=== PATIENT | female | born 1940 | race Caucasian/White ===

== ENCOUNTER 2016-10-23 21:35 | Emergency (ER) | payer MEDICARE, MEDICAID ==
[2016-10-23 22:54] VITALS: BP 134/76
--- NOTE | 2016-10-24 00:04 | UC ---
Abdominal Pain Female HPI - HPI Summary HPI Summary: 76 [address] [facility] accompanied by daughter c/o LLQ abd pain progressively worse (last few days, but exact timing unclear). No fever / chills. + blood clots in stool this afternoon x 2, first at 4pm. No urine difficulties. Hx diverticulosis on CT a/p in December 2015. No cp / sob. + recent anxiety 2/2 apartment renovation. No rash. - History of Current Complaint Chief Complaint: UCGI Stated Complaint: BLOOD IN STOOL Time Seen by Provider: 10/23/16 22:14 Hx Obtained From: Patient, Family/Progress Worker ?: No Pain Intensity: 0 Pain Scale Used: 0-10 Numeric Allergies/Adverse Reactions: Allergies Allergy/AdvReac Type Severity Reaction Status Date / Time No Known Allergies Allergy Verified 10/23/16 23:28 Home Medications: Home Medications ALPRAZolam TAB* [Xanax TAB*] PO PRN 10/23/16 [History] Diuretic* 10/23/16 [History] PMH/Surg Hx/FS Hx/Imm Hx Previously Healthy: No - see hpi Endocrine History Of: Denies: Diabetes, Thyroid Disease Cardiovascular History Of: Reports: Hypertension Denies: Cardiac Disorders, Pacemaker/ICD Respiratory History Of: Denies: COPD, Asthma GI/ History Of: Denies: Ulcer, Renal Disease Cancer History Of: Denies: Breast Cancer - Surgical History Surgical History: Yes Surgery Procedure, Year, and Place: LUNG SURG - AGE 17 - FROM A HEMORRHAGE. HYSTERECTOMY - Social History Alcohol Use: None Substance Use Type: None Smoking Status (MU): Never Smoked Tobacco Review of Systems Constitutional: Negative, Fatigue Skin: Negative Eyes: Negative ENT: Negative Respiratory: Negative Cardiovascular: Negative Gastrointestinal: Abdominal Pain Genitourinary: Negative Motor: Negative Neurovascular: Negative Musculoskeletal: Negative Neurological: Negative Psychological: Anxious All Other Systems Reviewed And Are Negative: Yes Physical Exam Triage Information Reviewed: Yes Appearance: Well-Nourished - sitting up, conversing ok. Nontoxic appearance. NAD. Vital Signs: Initial Vital Signs Temp 98.0 F 10/23/16 21:59 Pulse 88 10/23/16 21:59 Resp 18 10/23/16 21:59 BP 153/71 10/23/16 21:59 Pulse Ox 95 10/23/16 21:59 Vital Signs Reviewed: Yes Eye Exam: Normal ENT Exam: Normal Neck exam: Normal Neck: Positive: Nontender Respiratory Exam: Other Respiratory: Positive: Chest non-tender, Lungs clear, Wheezing - mild exp wheeze (pt states not unusual) Cardiovascular Exam: Normal Cardiovascular: Positive: RRR, No Murmur, Pulses Normal Abdominal Exam: Other - tender LLQ. No cvat appreciated. Abdomen Description: Positive: No Organomegaly, Soft Bowel Sounds: Positive: Present Neurological Exam: Normal - grossly normal, nonfocal Psychological Exam: Normal - normal except anxious understandably Skin Exam: Normal Abd Pain Female Course/Dx - Course Course Of Treatment: D/w pt and daughter. Recommend further eval / management in the ED. They express understanding and agreement. EMS offered but they politely but firmly decline. EMS AMA signed. I spoke with Dr. Jones at the ED 10:40pm approx. - Differential Dx/Diagnosis Provider Diagnoses: Acute abd pain. Hematochezia Discharge - Discharge Plan Condition: Stable Disposition: AGAINST MEDICAL ADVICE Referrals: Gómez Warren MD [Primary Care Provider] -
== END 2016-10-23 23:02 | disposition left against medical advice (07) ==
LOC: UCEAST 21:35
DX: R10.32 Left lower quadrant pain (principal); K92.1 Melena
CPT/HCPCS: 99212; G0463

== ENCOUNTER 2016-10-23 23:25 | Emergency (ER) | payer MEDICARE, MEDICAID ==
[2016-10-24 00:48] LABS: Hematocrit 45 % (35-47); Hemoglobin 14.8 g/dl (12.0-16.0); Mean Corpuscular HGB Conc 33 g/dl (31-36); Mean Corpuscular Hemoglobin 30 pg (27-31); Mean Corpuscular Volume 91 fL (80-97); Mean Platelet Volume 8 um3 (7.4-10.4); Red Blood Count 4.95 10^6/ul (4.0-5.4); Red Cell Distribution Width 14 % (10.5-15); White Blood Count 13.5 10^3/ul (3.5-10.8)
[2016-10-24 00:58] LABS: Albumin 4.2 g/dL (3.2-5.2); BUN/Creatinine Ratio 32.7 (8-20); Calcium 9.8 mg/dL (8.6-10.3); EGFR African American 71.3 (>60); EGFR Non-African American 55.5 (>60); Globulin 3.5 g/dL (2-4); Potassium 3.2 mmol/L (3.5-5.0); Total Bilirubin 0.5 mg/dL (0.2-1.0); Total Protein 7.7 g/dL (6.4-8.9)
[2016-10-24] MEDS ORDERED: NS 0.9% 1000 ML* 1,000 ML IV SCH (03:00)
[2016-10-24] MEDS ORDERED: Iodixanol 320 (CONTRAST) 100 ML SDV IV ONE (04:53)
[2016-10-24] MEDS ORDERED: Pantoprazole TAB (NF) 40 MG TAB PO ONE (05:51)
[2016-10-24 06:42] VITALS: BP 188/72
--- NOTE | 2016-10-24 06:59 | ED ---
Tali Grigsby Rebecca, scribed for [employer] Boseuel on 10/24/16 at 0016 . Abdominal Pain/Female - HPI Summary HPI Summary: Pt is a 76 y/o F who was referred to ED from [facility] who presents to ED c/o blood -tinged diarrhea. Diarrhea began 2 days ago and has been constant since onset. Reports that she had two episodes today, both of which had a scant amount of red blood. Additionally notes sharp LLQ abd pain that has resolved, alleviated by BM. Denies vomiting, fever. Is not on any blood thinners. No PMHx hemorrhoids. - History of Current Complaint Chief Complaint: EDNauseaVomitDiarrh Stated Complaint: DIARRHEA/BLOODY STOOL Time Seen by Provider: 10/23/16 23:59 Hx Obtained From: Patient Onset/Duration: Resolved Severity Currently: None Pain Intensity: 0 Pain Scale Used: 0-10 Numeric Location: Discrete At: LLQ Radiates: No Character: Sharp Aggravating Factor(s): Nothing Alleviating Factor(s): Bowel Movement Associated Signs and Symptoms: Positive: Blood in Stool - bright red, Diarrhea. Negative: Fever, Vomiting Allergies/Adverse Reactions: Allergies Allergy/AdvReac Type Severity Reaction Status Date / Time Lactose Intolerance (GI) Allergy Stomach Verified 10/24/16 00:13 Cramps PMH/Surg Hx/FS Hx/Imm Hx Endocrine/Hematology History: Denies: Hx Diabetes, Hx Thyroid Disease Cardiovascular History: Reports: Hx Hypertension Denies: Hx Pacemaker/ICD Respiratory History: Denies: Hx Asthma, Hx Chronic Obstructive Pulmonary Disease (COPD) GI History: Denies: Hx Ulcer History: Denies: Hx Renal Disease Sensory History: Denies: Hx Hearing Aid Psychiatric History: Denies: Hx Eating Disorder, Hx Panic Disorder, Hx of Violent Episodes Against Others - Cancer History Hx Chemotherapy: No Hx Radiation Therapy: No - Surgical History Surgery Procedure, Year, and Place: LUNG SURG - AGE 17 - FROM A HEMORRHAGE. HYSTERECTOMY - Immunization History Date of Tetanus Vaccine: Unk Date of Influenza Vaccine: Fall 2013 Infectious Disease History: Denies: Hx Clostridium Difficile, Hx Hepatitis, Hx Human Immunodeficiency Virus (HIV), Hx of Known/Suspected MRSA, Hx Shingles, Hx Tuberculosis, Hx Known/ Suspected VRE, Hx Known/Suspected VRSA, History Other Infectious Disease, Traveled Outside the [place] in Last 30 Days - Family History Known Family History: Positive: Hypertension - Social History Alcohol Use: None Substance Use Type: Reports: None Smoking Status (MU): Never Smoked Tobacco Review of Systems Negative: Fever Positive: Abdominal Pain - LLQ, resolved, Diarrhea - blood-tinged diarrhea. Negative: Vomiting All Other Systems Reviewed And Are Negative: Yes Physical Exam - Summary Physical Exam Summary: Rectal Exam: No hemorrhoids. No blood. Triage Information Reviewed: Yes Vital Signs On Initial Exam: Initial Vitals Temp Pulse Resp BP Pulse Ox 98.4 F 84 18 154/64 94 10/23/16 23:29 10/23/16 23:29 10/23/16 23:29 10/23/16 23:29 10/23/16 23:29 Vital Signs Reviewed: Yes Appearance: Positive: Well-Appearing, No Pain Distress Skin: Positive: Warm, Skin Color Reflects Adequate Perfusion, Dry Eyes: Positive: EOMI, ILDA Respiratory/Lung Sounds: Positive: Clear to Auscultation, Breath Sounds Present Cardiovascular: Positive: RRR, Pulses are Symmetrical in both Upper and Lower Extremities Abdomen Description: Positive: Nontender, Soft Bowel Sounds: Positive: Present Musculoskeletal: Positive: Normal, Strength/ROM Intact Neurological: Positive: Normal, Sensory/Motor Intact, Alert, Oriented to Person Place, Time Diagnostics - Vital Signs Vital Signs Temp Pulse Resp BP Pulse Ox 10/23/16 23:29 98.4 F 84 18 154/64 94 - Laboratory Result Diagrams: 10/24/16 00:25 10/24/16 00:25 Lab Statement: Any lab studies that have been ordered have been reviewed, and results considered in the medical decision making process. - CT CT Abd/Pel CT Interpretation Completed By: Radiologist - GI contrast and lack of a multiphase scan precludes evaluation of blood in the GI tract. There is no bowel obstruction, free air or free fluid. There is advanced sigmoid diverticulosis but no appreciable perisigmoidal inflammation. Negative for colitis. Duodenal diverticulum noted. Bilateral renal cysts. No acute renal or ureteral abnormalities. Urinary bladder partially distended. Normal liver. Normal gallbladder. Normal spleen. Normal pancreas. Normal adrenal glands. Chronic changes of the right lung base again noted. Emphysematous changes of the lungs noted. Abdominal Pain Fem Course/Dx - Course Course Of Treatment: Came with rectal bleeding. Labs and CT done. Hemoglobin is normal. CT is negative and pt had a BM but there was no active bleeding and does not want to be admitted to the hospital. Will D/C pt to follow up with PCP and retail buyer as an outpatient. Give Protonix for the pt until she sees retail buyer. - Diagnoses Provider Diagnoses: Rectal bleeding Discharge - Discharge Plan Condition: Stable Disposition: HOME Prescriptions: Pantoprazole TAB (NF) [Protonix TAB (NF)] 40 mg PO DAILY #30 tab Patient Education Materials: Rectal Bleeding (ED) Referrals: Gómez Warren MD [Primary Care Provider] - 3 Days Anderson Thomas MD [Medical Doctor] - 3 Days The documentation as recorded by the Tali moreno Rebecca accurately reflects the service I personally performed and the decisions made by Lidya allen Emmanuel.
[2016-10-24] MEDS ORDERED: Omeprazole CAP* 20 MG PO ONE (07:00)
--- NOTE | 2016-10-24 15:34 | RAD ---
CLINICAL HISTORY: Diarrhea and hematochezia x2 days. Relevant surgical history includes hysterectomy and "lung surgery - age 17 - from a hemorrhage"). COMPARISON: Most recent comparison CT examination dated March 07, 2012 TECHNIQUE: Contrast enhanced CT examination of the abdomen and pelvis from the lung bases through the initial tuberosities. The patient received 96 mL Visipaque 320 intravenously prior to imaging.The patient received oral contrast as well prior to imaging. FINDINGS: VISUALIZED LUNG BASES: Similar the previous CT examination there is partially calcified density at the right lung base, intralobular thickening with varicoid bronchiectatic dilatation of the airways dependently. In addition there is disruption of the lateral eighth and ninth ribs. The left lung base is normal in appearance. There are no pleural effusions. ABDOMEN AND PELVIS: The liver, spleen, pancreas and adrenal glands are grossly normal in appearance. The gallbladder is normal. The kidneys are normal in appearance without focal mass, calcification or signs of hydronephrosis. Stable low-density renal cysts are identified in the bilateral kidneys. Smaller subcentimeter hypodensities are identified that cannot be characterized further on this CT examination but appear to be stable when compared to the previous CT. The oral contrast has progressed as far as the splenic flexure of the colon again noted is a diverticulum in the third portion of the duodenum. The small bowel is not pathologically dilated. The cecal appendix is not discretely visualized, but there are no acute inflammatory changes of the right lower quadrant characteristic of acute appendicitis. Beginning just beyond the splenic flexure (image 29 of 99) there is a segment of wall thickening involving the descending colon that becomes asymmetric slightly more distal (image 39 of 99). Depicted best on the coronal plane images (image 45 through 56) there appears to be wall thickening up to the junction with the sigmoid colon. At the distal descending colon diverticula begin to appear becoming heavily concentrated at the sigmoid colon. The appearance of the sigmoid colon is similar to the March 07, 2012 CT examination. There is no definite pericolonic fat stranding or infiltration characteristic of acute diverticulitis. There is no gross retroperitoneal or mesenteric lymphadenopathy. The uterus is surgically absent. The mildly calcified abdominal aorta and iliac arteries are normal in course and diameter. Degenerative changes include multilevel loss of intervertebral disc height involving the lower thoracic and lumbar spine.There are no sinister bone lesions. IMPRESSION: 1. There is mild colonic wall thickening from the splenic flexure up to the junction of the descending colon and sigmoid colon. Infectious or inflammatory colitis is the most likely etiology. Of particular concern is asymmetric wall thickening at the proximal descending colon as described above. After the patient's acute symptoms resolve, direct visualization is recommended as colonic neoplasm is not excluded as a diagnostic possibility. Also possible, based on the distribution, is ischemic/infarcted bowel in the distribution of the inferior mesenteric artery. Please correlate to laboratory markers such as lactate level. 2. Sigmoid diverticulosis that appears to be adjacent but separate from the thickened descending colon wall. 3. Additional chronic, degenerative and iatrogenic findings are described in the body of the report, unlikely to be directly related to the patient's current presentation.
== END 2016-10-24 06:00 | disposition home or self-care (01) ==
LOC: ED 23:25
DX: K62.5 Hemorrhage of anus and rectum (principal); K57.30 Diverticulosis of large intestine without perforation or abscess without bleeding; R10.32 Left lower quadrant pain; I10 Essential (primary) hypertension; Z90.710 Acquired absence of both cervix and uterus
CPT/HCPCS: 36415; 74177; 80053; 82270; 82272; 85025; 85610; 85730; 86850; 86900; 86901; 96374; 99212; 99282; A9270-GY; G0463; Q9967

== ENCOUNTER 2021-01-27 09:34 | Inpatient (IN) ==
[2021-01-27] MEDS ORDERED: Ondansetron 4 mg VIAL 2 MG/ML 2 ml VIAL IV ONE (10:13)
[2021-01-27] MEDS ORDERED: Morphine 2 MG/ML SYRINGE IV ONE (10:14)
[2021-01-27 11:12] LABS: ABS Lymphocytes 0.8 10^3/ul (1.0-4.8); ABS Monocytes 1.1 10^3/ul (0-0.8); ABS Neutrophils 13.6 10^3/ul (1.5-7.7); Eosinophil % 0.2 %; Hematocrit 40 % (35-47); Hemoglobin 13.5 g/dL (12.0-16.0); Lymphocyte % 5.3 %; Mean Corpuscular HGB Conc 34 g/dL (31-36); Mean Corpuscular Hemoglobin 31 pg (27-31); Mean Corpuscular Volume 93 fL (80-97); Platelet Count 358 10^3/uL (150-450); Red Blood Count 4.32 10^6 /uL (3.70-4.87); Red Cell Distribution Width 14 % (10-15); Urine Appearance Cloudy; Urine Bilirubin Negative (Negative); Urine Blood Negative (Negative); Urine Color Yellow; Urine Glucose Negative (Negative); Urine Ketones Negative (Negative); Urine Nitrite Negative (Negative); Urine Protein 1+(30 mg/dL) (Negative); Urine Specific Gravity 1.019 (1.002-1.030); Urine Urobilinogen Negative (Negative); White Blood Count 15.6 10^3/uL (3.5-10.8)
[2021-01-27 11:22] LABS: Urine Bacteria Absent (Absent); Urine Red Blood Cell 2+(6-10/hpf) (Absent); Urine Squamous Epithelial Cell Present (Absent); Urine White Blood Cell 3+(>20/hpf) (Absent)
[2021-01-27 11:25] LABS: Troponin I 0.01 ng/mL (<0.03)
[2021-01-27 11:38] LABS: Albumin 4.2 g/dL (3.2-5.2); Albumin/Globulin Ratio 1.1 (1-3); Calcium 9.9 mg/dL (8.6-10.3); EGFR African American 58.1 (>60); Globulin 3.7 g/dL (2-4); Potassium 4.1 mmol/L (3.5-5.0); Total Bilirubin 0.6 mg/dL (0.2-1.0); Total Protein 7.9 g/dL (6.4-8.9)
[2021-01-27] MEDS ORDERED: Piperacillin/Tazobac ADVAN 3.375 GM in NS 0.9% 100 ml BAG 100 ML IV ONE (13:08)
[2021-01-27] MEDS ORDERED: NS 0.9% 1000 ml BAG 1,000 ML IV ONE (13:49)
[2021-01-27] MEDS ORDERED: cefTRIAXone 1 gm/50 mL NS BAG 1 GM/50 ML BAG IVPB SCH (15:00)
[2021-01-27] MEDS ORDERED: metroNIDAZOLE IV 500 MG/100ML 500 MG/100 ML BAG IVPB SCH (15:00)
[2021-01-27 17:47] LABS: C Reactive Protein 75.9 mg/L (<8.01)
[2021-01-27] MEDS: Enoxaparin 40 MG/0.4 ML SYR SUBCUT SCH (21:30)
[2021-01-27] MEDS: cefTRIAXone 1 gm/50 mL NS BAG 1 GM/50 ML BAG IVPB SCH (21:30)
[2021-01-27] MEDS: Morphine 2 MG/ML SYRINGE IV PRN (21:39)
[2021-01-27] MEDS: metroNIDAZOLE IV 500 MG/100ML 500 MG/100 ML BAG IVPB SCH (21:42)
[2021-01-27] MEDS: Latanoprost 0.005% 2.5 ml BTL BOTH EYES SCH (23:19)
[2021-01-27] MEDS: NS 0.9% 1000 ml BAG 1,000 ML IV SCH (23:53)
[2021-01-28] MEDS: Potassium Chlor 20 meq TAB.ER PO SCH (09:09)
[2021-01-28] MEDS: metroNIDAZOLE IV 500 MG/100ML 500 MG/100 ML BAG IVPB SCH ×2 (09:12→21:43)
[2021-01-28] MEDS: Timolol 0.5% OPTH.SOL BTL BOTH EYES SCH (09:13)
[2021-01-28] MEDS: NS 0.9% 1000 ml BAG 1,000 ML IV SCH (14:00)
[2021-01-28] MEDS: Morphine 2 MG/ML SYRINGE IV PRN ×2 (14:01→19:14)
[2021-01-28] MEDS: Latanoprost 0.005% 2.5 ml BTL BOTH EYES SCH (18:08)
[2021-01-28] MEDS: cefTRIAXone 1 gm/50 mL NS BAG 1 GM/50 ML BAG IVPB SCH (20:17)
[2021-01-28] MEDS: Enoxaparin 40 MG/0.4 ML SYR SUBCUT SCH (21:43)
[2021-01-29 07:16] LABS: Hematocrit 32 % (35-47); Hemoglobin 10.8 g/dL (12.0-16.0); Mean Corpuscular HGB Conc 34 g/dL (31-36); Mean Corpuscular Hemoglobin 32 pg (27-31); Mean Corpuscular Volume 94 fL (80-97); Platelet Count 241 10^3/uL (150-450); Red Blood Count 3.37 10^6 /uL (3.70-4.87); Red Cell Distribution Width 14 % (10-15); White Blood Count 6.9 10^3/uL (3.5-10.8)
[2021-01-29 07:31] LABS: Anion Gap 3 mmol/L (2-11); Blood Urea Nitrogen 18 mg/dL (6-24); C Reactive Protein 169.59 mg/L (<8.01); CO2 Carbon Dioxide 33 mmol/L (22-32); Chloride 103 mmol/L (101-111); EGFR African American 77.2 (>60); EGFR Non-African American 63.8 (>60); Glucose 87 mg/dL (70-100); Potassium 3.4 mmol/L (3.5-5.0); Sodium 139 mmol/L (135-145)
[2021-01-29] MEDS: metroNIDAZOLE IV 500 MG/100ML 500 MG/100 ML BAG IVPB SCH ×2 (07:51→22:32)
[2021-01-29] MEDS: Potassium Chlor 20 meq TAB.ER PO SCH (07:52)
[2021-01-29] MEDS: Timolol 0.5% OPTH.SOL BTL BOTH EYES SCH (07:53)
[2021-01-29] MEDS ORDERED: Potassium Chloride LIQUID 20 MEQ/15 ML LIQUID PO ONE (08:40)
[2021-01-29 10:01] LABS: % Iron Saturation 10 % (15-55); Iron 29 ug/dL (50-212); Total Iron Binding Capacity 279 mcg/dL (250-450); Transferrin 199 mg/dL (203-362); Unsaturated Iron Binding < 264 ug/dL
[2021-01-29 10:22] LABS: Ferritin 294.7 ng/mL (11-307)
[2021-01-29 10:26] LABS: Vitamin B12 1021 pg/mL (180-914)
[2021-01-29] MEDS: Latanoprost 0.005% 2.5 ml BTL BOTH EYES SCH (17:04)
[2021-01-29] MEDS: Enoxaparin 40 MG/0.4 ML SYR SUBCUT SCH (21:18)
[2021-01-29] MEDS: cefTRIAXone 1 gm/50 mL NS BAG 1 GM/50 ML BAG IVPB SCH (21:18)
[2021-01-29] MEDS: Morphine 2 MG/ML SYRINGE IV PRN (21:31)
[2021-01-30] MEDS ORDERED: Albuterol HFA INHALER 8 gm MDI INH PRN (07:46)
[2021-01-30] MEDS ORDERED: HYDROcodone/ACETAMIN 5/325 mg TAB PO PRN (07:54)
[2021-01-30 08:03] LABS: Hematocrit 35 % (35-47); Hemoglobin 11.8 g/dL (12.0-16.0); Mean Corpuscular HGB Conc 34 g/dL (31-36); Mean Corpuscular Hemoglobin 32 pg (27-31); Mean Corpuscular Volume 93 fL (80-97); Mean Platelet Volume 6.8 fL (7.4-10.4); Platelet Count 292 10^3/uL (150-450); Red Blood Count 3.71 10^6 /uL (3.70-4.87); Red Cell Distribution Width 14 % (10-15)
[2021-01-30] MEDS: Potassium Chlor 20 meq TAB.ER PO SCH (09:04)
[2021-01-30] MEDS: Timolol 0.5% OPTH.SOL BTL BOTH EYES SCH (09:05)
[2021-01-30] MEDS: metroNIDAZOLE IV 500 MG/100ML 500 MG/100 ML BAG IVPB SCH ×2 (09:05→22:38)
[2021-01-30] MEDS: Latanoprost 0.005% 2.5 ml BTL BOTH EYES SCH (17:45)
[2021-01-30] MEDS: cefTRIAXone 1 gm/50 mL NS BAG 1 GM/50 ML BAG IVPB SCH (21:41)
[2021-01-30] MEDS: Enoxaparin 40 MG/0.4 ML SYR SUBCUT SCH (22:39)
[2021-01-31] MEDS: metroNIDAZOLE IV 500 MG/100ML 500 MG/100 ML BAG IVPB SCH ×2 (09:14→23:28)
[2021-01-31] MEDS: Potassium Chlor 20 meq TAB.ER PO SCH (09:14)
[2021-01-31] MEDS: Timolol 0.5% OPTH.SOL BTL BOTH EYES SCH (09:15)
[2021-01-31] MEDS: Latanoprost 0.005% 2.5 ml BTL BOTH EYES SCH (18:24)
[2021-01-31] MEDS: cefTRIAXone 1 gm/50 mL NS BAG 1 GM/50 ML BAG IVPB SCH (22:37)
[2021-01-31] MEDS: Enoxaparin 40 MG/0.4 ML SYR SUBCUT SCH (22:40)
[2021-02-01] MEDS: Timolol 0.5% OPTH.SOL BTL BOTH EYES SCH (07:31)
[2021-02-01] MEDS: Potassium Chlor 20 meq TAB.ER PO SCH (07:31)
[2021-02-01 08:26] VITALS: BP 154/72
[2021-02-01] MEDS: metroNIDAZOLE IV 500 MG/100ML 500 MG/100 ML BAG IVPB SCH (09:30)
== END 2021-02-01 11:00 | disposition home or self-care (01) | DRG 392 ==
LOC: ED 09:34 → MED 20:49
PROVIDERS: ADMIT Hospitalist; ATTEND Hospitalist

== ENCOUNTER 2021-12-23 00:04 | Observation (INO) ==
[2021-12-23] MEDS ORDERED: NS 0.9% 1000 ml BAG 1,000 ML IV ONE ×2 (01:13→18:00)
[2021-12-23] MEDS ORDERED: Ondansetron 4 mg VIAL 2 MG/ML 2 ml VIAL IV ONE ×2 (01:16→05:58)
[2021-12-23 01:45] LABS: Urine Appearance Cloudy; Urine Bilirubin Negative (Negative); Urine Blood Negative (Negative); Urine Color Amber; Urine Glucose Negative (Negative); Urine Ketones Negative (Negative); Urine Nitrite Negative (Negative); Urine Protein 1+(30 mg/dL) (Negative); Urine Specific Gravity 1.018 (1.002-1.030); Urine Urobilinogen Negative (Negative)
[2021-12-23 01:46] LABS: Urine Bacteria Absent (Absent); Urine Red Blood Cell Trace(0-2/hpf) (Absent); Urine Squamous Epithelial Cell Present (Absent); Urine White Blood Cell 3+(>20/hpf) (Absent)
[2021-12-23 01:55] LABS: Albumin/Globulin Ratio 1.3 (1-3); C Reactive Protein 24.1 mg/L (<8.01); Calcium 9.6 mg/dL (8.6-10.3); Globulin 3.1 g/dL (2-4); Magnesium 1.7 mg/dL (1.9-2.7); Potassium 3.5 mmol/L (3.5-5.0); Total Bilirubin 0.5 mg/dL (0.2-1.0); Total Protein 7.1 g/dL (6.4-8.9)
[2021-12-23 02:07] LABS: ABS Lymphocytes 0.5 10^3/ul (1.0-4.8); ABS Monocytes 0.6 10^3/ul (0-0.8); ABS Neutrophils 4.7 10^3/ul (1.5-7.7); Eosinophil % 0.8 %; Hematocrit 40 % (35-47); Hemoglobin 13.5 g/dL (12.0-16.0); Lymphocyte % 8.4 %; Mean Corpuscular HGB Conc 34 g/dL (31-36); Mean Corpuscular Hemoglobin 31 pg (27-31); Mean Corpuscular Volume 91 fL (80-97); Mean Platelet Volume 7.5 fL (7.4-10.4); Platelet Count 256 10^3/uL (150-450); Red Blood Count 4.36 10^6 /uL (3.70-4.87); Red Cell Distribution Width 14 % (10-15); White Blood Count 5.9 10^3/uL (3.5-10.8)
[2021-12-23 02:11] LABS: Activated Partial Thrombo Time 29.2 seconds (26.0-38.0); INR 1.09 (0.86-1.15)
[2021-12-23] MEDS ORDERED: cefTRIAXone 1 gm/50 mL D5W 1 GM/50 ML BAG IV ONE (03:41)
[2021-12-23] MEDS ORDERED: Metoclopramide 5 MG/ML VIAL (10 mg) IV SLOW PU ONE (03:53)
[2021-12-23] MEDS ORDERED: Morphine 4 MG/ML VIAL (1 ml) IV ONE (03:53)
[2021-12-23] MEDS ORDERED: Iohexol 350 (CONTRAST) 500 ML MDV IV ONE ×2 (04:11→17:32)
[2021-12-23 08:58] LABS: PCO2 Arterial 59 mmHg (35-45); PO2 Arterial 60 mmHg (80-100)
[2021-12-23] MEDS ORDERED: Magnesium Sulfate 2 gm BAG 2 GM/50 ML BAG IVPB ONE (14:28)
[2021-12-23] MEDS ORDERED: Albuterol HFA INHALER 8 gm MDI INH PRN (14:41)
[2021-12-23] MEDS ORDERED: Ondansetron 4 mg VIAL 2 MG/ML 2 ml VIAL IV PRN (14:42)
[2021-12-23] MEDS: Enoxaparin 40 MG/0.4 ML SYR SUBCUT SCH (15:25)
[2021-12-23] MEDS: Mometasone/Formoter 100/5 MDI INH SCH (19:24)
[2021-12-23] MEDS ORDERED: Latanoprost 0.005% 2.5 ml BTL BOTH EYES SCH (21:00)
[2021-12-24] MEDS ORDERED: cefTRIAXone 1 gm/50 mL D5W 1 GM/50 ML BAG IV SCH ×2 (04:00→09:00)
[2021-12-24 05:14] LABS: ABS Lymphocytes 0.5 10^3/ul (1.0-4.8); ABS Monocytes 0.7 10^3/ul (0-0.8); ABS Neutrophils 4.6 10^3/ul (1.5-7.7); Eosinophil % 0.6 %; Hematocrit 36 % (35-47); Hemoglobin 11.9 g/dL (12.0-16.0); Lymphocyte % 8.6 %; Mean Corpuscular HGB Conc 33 g/dL (31-36); Mean Corpuscular Hemoglobin 30 pg (27-31); Mean Corpuscular Volume 92 fL (80-97); Mean Platelet Volume 7.2 fL (7.4-10.4); Nucleated Red Blood Cells % 0.1; Platelet Count 202 10^3/uL (150-450); Red Blood Count 3.96 10^6 /uL (3.70-4.87); Red Cell Distribution Width 14 % (10-15); White Blood Count 5.9 10^3/uL (3.5-10.8)
[2021-12-24 05:35] LABS: Calcium 8.1 mg/dL (8.6-10.3); Magnesium 2.2 mg/dL (1.9-2.7); Potassium 3.4 mmol/L (3.5-5.0); eGFR CKD-EPI 61.7 (>60)
[2021-12-24] MEDS ORDERED: Potassium Chlor 20 meq TAB.ER PO ONE (06:44)
[2021-12-24] MEDS: Mometasone/Formoter 100/5 MDI INH SCH (07:41)
[2021-12-24] MEDS ORDERED: Timolol 0.5% OPTH.SOL BTL BOTH EYES SCH (09:00)
[2021-12-24 10:42] VITALS: BP 136/65
[2021-12-24] MEDS ORDERED: Al Hydrox/Mg Hydrox/Simet LIQ 30 ML UDC PO ONE (11:34)
[2021-12-24] MEDS: Enoxaparin 40 MG/0.4 ML SYR SUBCUT SCH (17:04)
== END 2021-12-24 17:05 | disposition home or self-care (01) ==
LOC: ED 00:04 → SUATTDRO 11:55 → INTOOBSV 11:55 → EDHOLD 11:55 → MED 14:37
PROVIDERS: ADMIT Family Medicine; ATTEND Student in an Organized Health Care Education/Training Program

== ENCOUNTER 2023-06-04 11:29 | Inpatient (IN) ==
[2023-06-04 14:29] LABS: Hematocrit 40.6 % (35-45); Hemoglobin 13.5 g/dL (11.5-14.3); Mean Corpuscular Hemoglobin 30.4 pg (27-33); Mean Corpuscular Hgb Conc 33.2 g/dL (31-36); Mean Corpuscular Volume 91.7 fL (80-97); Mean Platelet Volume 6.9 fL (7.5-11.2); Platelet Count 339 10^3/uL (150-450); Red Blood Count 4.43 10^6/uL (3.63-4.92); Red Cell Distribution Width 14.4 % (12-17); White Blood Count 20.3 10^3/uL (3.8-11.8)
[2023-06-04 14:44] LABS: INR 1.09 (0.83-1.13)
[2023-06-04 15:03] LABS: Albumin 4.6 g/dL (3.2-5.2); Albumin/Globulin Ratio 1.3 (1-3); Calcium 10.8 mg/dL (8.6-10.3); Creatinine, Serum 1.23 mg/dL (0.51-0.95); Globulin 3.6 g/dL (2-4); Potassium 4.5 mmol/L (3.5-5.0); Total Bilirubin 0.7 mg/dL (0.2-1.0); Total Protein 8.2 g/dL (6.4-8.9); eGFR CKD-EPI 44.1 (>60)
[2023-06-04 15:21] LABS: ABS Basophils 0.1 10^3/uL (0.0-0.1); ABS Eosinophils 0.1 10^3/uL (0.0-0.5); ABS Lymphocytes 0.8 10^3/uL (1.0-4.8); ABS Monocytes 1.3 10^3/uL (0.0-0.9); Eosinophil % 0.3 %; Lymphocyte % 3.9 %
[2023-06-04] MEDS ORDERED: Iodixanol (CONTRAST) 320 MG/ML 100 ML SDV IV ONE (15:24)
[2023-06-04] MEDS ORDERED: NS 0.9% 1000 ml BAG 1,000 ML IV ONE (16:15)
[2023-06-04] MEDS ORDERED: Piperacillin/Tazobac 3.375 BAG 3.375 GM/100 ML BAG IV ONE (16:26)
[2023-06-04] MEDS ORDERED: Lactated Ringers 1000 ml BAG 1,000 ML IV SCH (19:00)
[2023-06-04] MEDS ORDERED: Zosyn per Pharmacy NOTE FOLLOW UP SCH (19:00)
[2023-06-04 20:09] LABS: Activated Partial Thrombo Time 28.1 seconds (26.0-38.0); INR 1.15 (0.83-1.13)
[2023-06-04] MEDS: Ondansetron 4 mg VIAL 2 MG/ML 2 ml VIAL IV PRN (20:24)
[2023-06-04] MEDS: Heparin 5000 UNITS/ML 1 mL VIAL SUBCUT SCH (20:30)
[2023-06-04] MEDS: Albuterol HFA INHALER 8 gm MDI INH PRN (20:34)
[2023-06-04] MEDS ORDERED: ZOSYN 3.375 GM Q8H per EXTENDED INFUSION IV SCH (21:00)
[2023-06-04] MEDS: NS 0.9% 1000 ml BAG 1,000 ML IV SCH (23:04)
[2023-06-05] MEDS: Latanoprost 0.005% 2.5 ml BTL BOTH EYES SCH ×2 (00:42→21:34)
[2023-06-05] MEDS: ZOSYN 3.375 GM Q8H per EXTENDED INFUSION IV SCH ×3 (05:41→21:34)
[2023-06-05] MEDS: Ondansetron 4 mg VIAL 2 MG/ML 2 ml VIAL IV PRN (05:48)
[2023-06-05 06:06] LABS: Hematocrit 34.9 % (35-45); Hemoglobin 11.5 g/dL (11.5-14.3); Mean Corpuscular Hemoglobin 30.8 pg (27-33); Mean Corpuscular Hgb Conc 33.1 g/dL (31-36); Mean Corpuscular Volume 93.3 fL (80-97); Platelet Count 272 10^3/uL (150-450); Red Blood Count 3.74 10^6/uL (3.63-4.92); Red Cell Distribution Width 14.4 % (12-17); White Blood Count 17.6 10^3/uL (3.8-11.8)
[2023-06-05 06:27] LABS: Calcium 8.6 mg/dL (8.6-10.3); Creatinine, Serum 1.25 mg/dL (0.51-0.95); Magnesium 1.8 mg/dL (1.9-2.7); Potassium 4.3 mmol/L (3.5-5.0); eGFR CKD-EPI 43.3 (>60)
[2023-06-05 06:46] LABS: ABS Eosinophils 0.1 10^3/uL (0.0-0.5); ABS Lymphocytes 1.1 10^3/uL (1.0-4.8); ABS Monocytes 1.1 10^3/uL (0.0-0.9); ABS Neutrophils 15.3 10^3/uL (1.5-7.6); Eosinophil % 0.4 %; Lymphocyte % 6.4 %
[2023-06-05] MEDS ORDERED: Magnesium Sulfate 2 gm BAG 2 GM/50 ML BAG IVPB ONE (08:30)
[2023-06-05] MEDS: Heparin 5000 UNITS/ML 1 mL VIAL SUBCUT SCH ×2 (09:45→21:34)
[2023-06-05] MEDS: NS 0.9% 1000 ml BAG 1,000 ML IV SCH (12:07)
[2023-06-05 19:18] LABS: C Reactive Protein 171.31 mg/L (<8.01)
[2023-06-06] MEDS: Albuterol HFA INHALER 8 gm MDI INH PRN ×2 (02:26→19:44)
[2023-06-06] MEDS: ZOSYN 3.375 GM Q8H per EXTENDED INFUSION IV SCH ×3 (04:27→21:58)
[2023-06-06] MEDS: NS 0.9% 1000 ml BAG 1,000 ML IV SCH (04:27)
[2023-06-06] MEDS: Heparin 5000 UNITS/ML 1 mL VIAL SUBCUT SCH ×2 (08:33→19:46)
[2023-06-06 10:16] LABS: ABS Eosinophils 0.1 10^3/uL (0.0-0.5); ABS Lymphocytes 0.7 10^3/uL (1.0-4.8); ABS Monocytes 0.6 10^3/uL (0.0-0.9); ABS Neutrophils 9.4 10^3/uL (1.5-7.6); Eosinophil % 0.9 %; Hematocrit 31.2 % (35-45); Hemoglobin 10.6 g/dL (11.5-14.3); Lymphocyte % 6.3 %; Mean Corpuscular Hemoglobin 31.2 pg (27-33); Mean Platelet Volume 7.1 fL (7.5-11.2); Platelet Count 282 10^3/uL (150-450); Red Blood Count 3.39 10^6/uL (3.63-4.92); Red Cell Distribution Width 14.7 % (12-17); White Blood Count 10.8 10^3/uL (3.8-11.8)
[2023-06-06 10:33] LABS: Calcium 8.2 mg/dL (8.6-10.3); Creatinine, Serum 1.36 mg/dL (0.51-0.95); eGFR CKD-EPI 39.1 (>60)
[2023-06-06] MEDS ORDERED: NS 0.9% 1000 ml BAG 1,000 ML IV SCH (11:21)
[2023-06-06] MEDS: Latanoprost 0.005% 2.5 ml BTL BOTH EYES SCH (22:04)
[2023-06-07] MEDS: ZOSYN 3.375 GM Q8H per EXTENDED INFUSION IV SCH ×3 (05:35→22:34)
[2023-06-07] MEDS: Albuterol HFA INHALER 8 gm MDI INH PRN ×2 (06:36→22:41)
[2023-06-07 06:37] LABS: ABS Eosinophils 0.1 10^3/uL (0.0-0.5); ABS Lymphocytes 0.9 10^3/uL (1.0-4.8); ABS Monocytes 0.7 10^3/uL (0.0-0.9); ABS Neutrophils 6.9 10^3/uL (1.5-7.6); ABS Nucleated RBC 0.01 10^3/ul; Eosinophil % 1.5 %; Hemoglobin 10.8 g/dL (11.5-14.3); Lymphocyte % 10.8 %; Mean Corpuscular Hemoglobin 30.7 pg (27-33); Mean Corpuscular Hgb Conc 32.8 g/dL (31-36); Mean Corpuscular Volume 93.5 fL (80-97); Nucleated Red Blood Cells % 0.1 %/100WBC (0.0-0.8); Platelet Count 272 10^3/uL (150-450); Red Blood Count 3.53 10^6/uL (3.63-4.92); Red Cell Distribution Width 14.7 % (12-17); White Blood Count 8.7 10^3/uL (3.8-11.8)
[2023-06-07 08:35] LABS: Calcium 8.5 mg/dL (8.6-10.3); Creatinine, Serum 1.16 mg/dL (0.51-0.95); Potassium 4.4 mmol/L (3.5-5.0); eGFR CKD-EPI 47.4 (>60)
[2023-06-07] MEDS: Heparin 5000 UNITS/ML 1 mL VIAL SUBCUT SCH ×2 (09:35→22:01)
[2023-06-07] MEDS ORDERED: HYDROmorphone 0.5 MG/0.5 ML SYRINGE IV SLOW PU PRN (10:32)
[2023-06-07] MEDS: Latanoprost 0.005% 2.5 ml BTL BOTH EYES SCH (22:02)
[2023-06-08] MEDS ORDERED: Benzocaine/Menthol LOZ PO PRN (01:01)
[2023-06-08] MEDS ORDERED: guaiFENesin 100 mg/5 ml LIQ unit dose cup PO PRN (01:03)
[2023-06-08] MEDS: ZOSYN 3.375 GM Q8H per EXTENDED INFUSION IV SCH ×2 (05:17→12:51)
[2023-06-08 06:12] LABS: ABS Eosinophils 0.1 10^3/uL (0.0-0.5); ABS Lymphocytes 0.8 10^3/uL (1.0-4.8); ABS Monocytes 0.7 10^3/uL (0.0-0.9); ABS Neutrophils 5.2 10^3/uL (1.5-7.6); Eosinophil % 1.6 %; Hematocrit 30.3 % (35-45); Hemoglobin 10.2 g/dL (11.5-14.3); Mean Corpuscular Hemoglobin 31.3 pg (27-33); Mean Corpuscular Hgb Conc 33.5 g/dL (31-36); Mean Corpuscular Volume 93.5 fL (80-97); Mean Platelet Volume 6.8 fL (7.5-11.2); Platelet Count 259 10^3/uL (150-450); Red Blood Count 3.24 10^6/uL (3.63-4.92); Red Cell Distribution Width 14.4 % (12-17); White Blood Count 6.9 10^3/uL (3.8-11.8)
[2023-06-08 06:38] LABS: Calcium 8.5 mg/dL (8.6-10.3); Creatinine, Serum 0.85 mg/dL (0.51-0.95); Potassium 3.8 mmol/L (3.5-5.0); eGFR CKD-EPI 68.8 (>60)
[2023-06-08] MEDS: Heparin 5000 UNITS/ML 1 mL VIAL SUBCUT SCH (09:35)
[2023-06-08 13:45] VITALS: BP 180/80
== END 2023-06-08 18:10 | disposition home or self-care (01) | DRG 392 ==
LOC: ED 11:29 → EDHOLD 11:29 → SUATTDRO 16:36 → MED 06-05 01:08 → SUATTDRO 06-06 11:58
PROVIDERS: ADMIT Student in an Organized Health Care Education/Training Program; ATTEND Hospitalist